=== PATIENT | female | born 1960 | race Caucasian/White ===

== ENCOUNTER 2018-03-31 00:25 | Emergency (ER) | payer MEDICAID ==
[~2018-03-31] VITALS: Ht 175.3 cm; Wt 110.2 kg
[2018-03-31 00:33] VITALS: BP_SYST 157
[2018-03-31] MEDS ORDERED: KETOROLAC TROMETHAMINE 60 MG/2 ML VIAL IM ONE (01:00)
[2018-03-31 01:20] VITALS: BP_SYST 149
== END 2018-03-31 01:20 | disposition home or self-care (01) ==
LOC: SED 00:25
DX: K08.89 Other specified disorders of teeth and supporting structures (principal); L03.116 Cellulitis of left lower limb; L03.115 Cellulitis of right lower limb; F17.210 Nicotine dependence, cigarettes, uncomplicated; I10 Essential (primary) hypertension
CPT/HCPCS: 96372; 99283; J1885

== ENCOUNTER 2020-02-20 16:42 | Emergency (ER) | payer MEDICAID ==
[~2020-02-20] VITALS: Ht 175.3 cm; Wt 97.1 kg
[2020-02-20 16:57] VITALS: BP_SYST 135
[2020-02-20 17:39] VITALS: BP_SYST 135
== END 2020-02-20 17:39 | disposition home or self-care (01) ==
LOC: SED 16:42
DX: R21 Rash and other nonspecific skin eruption (principal); I10 Essential (primary) hypertension; F17.210 Nicotine dependence, cigarettes, uncomplicated
CPT/HCPCS: 87070-TC; 99283

== ENCOUNTER 2020-09-30 05:48 | Inpatient (IN) | payer MEDICAID ==
[~2020-09-30] VITALS: Ht 175.3 cm; Wt 97.1 kg
[2020-09-30 05:50] VITALS: BP_SYST 160
--- NOTE | 2020-09-30 05:55 | NUR ---
Placed in room 06 . Placed on potline monitor, blood pressure machine and pulse oximeter. To gown for exam. Side rails up. Report given to CERAMIC MOLD DESIGNEROUMAR GAVIN.
--- NOTE | 2020-09-30 05:56 | NUR ---
Came in ER this 59 year old female from home, per wheelchair, AAOX4, breathing spontaneously at room air not in distress noted. With chief complaints of Bilateral lower limb swelling, pain and redness noted, with pain score 9/10 as claimed, known with hypertension but not on medication, no surgical and no allergy as claimed. Initial vital signs taken and recorded.
--- NOTE | 2020-09-30 05:58 | NUR ---
# 20 gauge angiocath placed to left antecubital vein. Use of asceptic technique. Opsite placed over site. Blood return noted. Blood for lab drawn from site. Flushed with 10 cc of normal saline. No evidence of infiltration noted. Patient tolerated well.
--- NOTE | 2020-09-30 06:00 | NUR ---
ER MD RAMAN AT BEDSIDE EXAMINING PT
[2020-09-30] MEDS ORDERED: PIPERACILLIN/TAZO 3.375 GM in NS 50 ML IV ONE (06:15)
[2020-09-30] MEDS ORDERED: MORPHINE 4 MG/ML INJ. SYRINGE IVP ONE ×2 (06:15→08:00)
[2020-09-30] MEDS ORDERED: NS 500 ML IV SCH (06:15)
[2020-09-30] MEDS ORDERED: VANCOMYCIN HCL 1 MG in D5W 250 ML IV ONE (06:15)
[2020-09-30] MEDS ORDERED: ONDANSETRON HCL 4 MG/2 ML VIAL IVP ONE (06:15)
[2020-09-30] MEDS ORDERED: PIPERACILLIN/TAZOBACTAM 3.375 GM/VIAL (ZOSYN) IV ONE (06:27)
[2020-09-30] MEDS ORDERED: VANCOMYCIN HCL 1000 MG/VIAL IV ONE (06:27)
--- NOTE | 2020-09-30 06:35 | NUR ---
Medication and Iv fluid commenced as ordered.
[2020-09-30 06:48] LABS: BASOPHILS % (AUTO) 0.3 % (0.0-2.0); EOSINOPHILS # (AUTO) 0.2 K/uL (0.0-0.4); EOSINOPHILS % (AUTO) 1.3 % (0.0-4.0); HEMATOCRIT 40.9 % (36-48); HEMOGLOBIN 13.4 g/dL (12.0-16.0); LYMPHOCYTES % (AUTO) 14.5 % (20.5-51.5); MEAN CORPUSCULAR HEMOGLOBIN 28 pg (27-31); MEAN CORPUSCULAR HGB CONC 33 % (32-36); MEAN CORPUSCULAR VOLUME 87 fL (79.0-98.0); MONOCYTES # (AUTO) 1.6 K/uL (0.0-1.0); MONOCYTES % (AUTO) 11.3 % (1.7-9.3); NEUTROPHILS # (AUTO) 10.1 K/uL (1.8-7.7); NEUTROPHILS % (AUTO) 72.6 % (40.0-70.0); PLATELET COUNT (AUTO) 371 K/uL (130-430); RED BLOOD CELL COUNT(AUTO) 4.71 MIL/uL (4.2-6.2); RED CELL DISTRIBUTION WIDTH 14.4 % (9.0-15.0); WHITE BLOOD COUNT (AUTO) 13.9 K/uL (4.8-10.8)
--- NOTE | 2020-09-30 06:50 | NUR ---
PT DENIES TAKING ANY MEDICATION
[2020-09-30 07:09] LABS: CALCIUM 8.9 mg/dL (8.4-11.0); CREATININE 1.02 mg/dL (0.55-1.30); POTASSIUM 3.9 mmol/L (3.5-5.1)
--- NOTE | 2020-09-30 07:10 | NUR ---
Endorsed to OUMAR Olson in stable condition for continuity of care
[2020-09-30 07:15] LABS: ALBUMIN 3.6 g/dL (3.4-4.8); TOTAL BILIRUBIN 0.6 mg/dL (0.0-1.0)
--- NOTE | 2020-09-30 07:27 | NUR ---
Unable to obtain patient medication list.
--- NOTE | 2020-09-30 07:49 | NUR ---
Patient will be admitted to care of Dr. Mina. Admitted to medsurg unit. Waiting for room assignment. Belongings list completed. Complete and up to date summary report printed. SBAR report to be given at bedside with opportunity for questions.
--- NOTE | 2020-09-30 07:58 | NUR ---
Transfer to [facility]. Licensed nurse present. IV present no signs or symptoms of infiltration.
--- NOTE | 2020-09-30 08:05 | NUR ---
CONSULTATION PAGED REASON FOR CONSULTATION:CELLULITIS PERSON WHO WAS NOTIFIED:JOSE MIGUEL CONSULTING PHYSICIAN:GLENDY KING PATIENT SERVICE REPRESENTATIVE SPECIALTY:INFECTIOUS DISEASE PATIENT SERVICE REPRESENTATIVE PHONE NUMBER:[phone] REQUESTING PHYSICIAN:AKI HUTCHINS
--- NOTE | 2020-09-30 08:06 | NUR ---
ADMISSION NOTE Received patient from ER via gurney. Patient admitted with diagnosis of cellulitis. Patient is awake, alert, oriented X 4. Patient oriented to hospital room, call light, toileting, pain management and safety-teach back done. Patient informed that Miranda will be her nurse and that their room number is 102 A. Personal belongings checked and Belongings List documented. Call light within reach.
[2020-09-30 08:18] VITALS: BP_SYST 159
--- NOTE | 2020-09-30 08:41 | NUR ---
PAGED PAGED AKI HUTCHINS AT [phone] SPOKE WITH AGA.
--- NOTE | 2020-09-30 08:48 | NUR ---
CALLED AND RECEIVED CALL BACK FROM AKI DOE. REPORTED TO DR. LOZADA, THE PATIENT HAS TEMP 101.4 BUT NO TYLENOL ORDER AND THE PATIENT C/O PAIN, NO ORDER YET. ALSO REPORTED TO DR. LOZADA, PATIENT HR 95, WBC 13.9 WHICH FALLS IN SEPSIS PROTOCOL, IVF BOLUS GIVEN IN ER BUT NO CONTINUOUS IVF ORDERED AND BLOOD CULTURE DONE IN ER BUT LACTIC ACID NOT DONE. DR. LOZADA WITH ORDER TYLENOL, NORCO 5/325MG, AND NORCO 10/325, AND D5 1/2NS AT 100ML. ORDER READ BACK AND OKAY TO DR. LOZADA.
[2020-09-30] MEDS ORDERED: ACETAMINOPHEN 325 MG TABLET PO PRN ×3 (09:00→13:45)
[2020-09-30] MEDS ORDERED: HYDROcodone/ACETAMIN 5-325 MG TAB (NORCO/ VICODIN) PO PRN (09:00)
--- NOTE | 2020-09-30 09:02 | NUR ---
HIGH ALERT NOTE: Called Cosmo Hill back at [phone] identified within the medical roster to verify physician authenticity.
--- NOTE | 2020-09-30 09:22 | NUR ---
US DOPPLER STUDY OF BILATERAL LOWER EXTREMITIES DONE AT BEDSIDE.
[2020-09-30] MEDS: D5/0.45 NS 1,000 ML IV SCH ×2 (10:58→19:00)
[2020-09-30 12:25] VITALS: BP_SYST 126
[2020-09-30 13:06] VITALS: BP_SYST 126
--- NOTE | 2020-09-30 13:22 | NUR ---
WEBB KEEP WITH PATIENT Patient has webb $20 x 4, $1 x 3, and coins inside a small wallet. Offered to keep in safety but the patient refused.
[2020-09-30] MEDS ORDERED: LORazepam 2 MG/ML VIAL IVP PRN ×2 (13:45→18:45)
[2020-09-30] MEDS ORDERED: NALOXONE HCL 0.4 MG/ML AMP (NARCAN) IVP PRN ×2 (13:45)
--- NOTE | 2020-09-30 15:48 | NUR ---
BATHROOM Ambulated to bathroom with orthopedic assistant. Void freely with yellow urine, no hematuria/dysuria noted. Patient performed perineal care self. Assisted back to bed. safety measure maintained. Call light within reached. Bed locked in low position, side rails up, bed alarm on. Continue to monitor.
[2020-09-30] MEDS: PIPERACILLIN/TAZO 3.375/DEX-IS 50 ML IV SCH ×2 (15:57→21:35)
[2020-09-30 16:00] VITALS: BP_SYST 135
[2020-09-30] MEDS: HYDROcodone/ACETAMIN 10-325 MG TAB PO PRN ×2 (16:03→21:39)
--- NOTE | 2020-09-30 16:03 | NUR ---
NORCO GIVEN Patient c/o bilateral lower leg pain 7/10, [place] 10/325mg 1 tab PO given as ordered. No acute distress. Safety measure maintained. Call light within reached. Continue to monitor.
[2020-09-30] MEDS ORDERED: FLU VACC QS2020-21 (6 mos & up) 0.5 ML/SYRINGE I.M. PRN (16:30)
--- NOTE | 2020-09-30 18:20 | NUR ---
SEEN AND EXAMINED BY AKI DOE.
[2020-09-30] MEDS ORDERED: ONDANSETRON HCL 4 MG/2 ML VIAL IVP PRN (18:45)
--- NOTE | 2020-09-30 18:55 | NUR ---
CLOSING NOTE Patient resting in the bed. No acute distress. Skin warm and dry to touch. Temp 98.8 at this time. IV intact to LAC, no redness, no swelling, no drainage. On D5 1/2NS at 100ml/hr, infusing well. All needs met. Safety measure maintained. Call light within reached. Bed locked in low position, side rails up, bed alarm on. Will endorse to night nurse.
[2020-09-30 19:00] VITALS: BP_SYST 111
--- NOTE | 2020-09-30 19:15 | NUR ---
pt.assessed.pt.presents quiescent affect;calm,resting.pt.presents cellulitis;location:lowed extremities bilateral.pt.presents psorias location;profound distribution.pt.presents iv access location:lt.antecubital iv intact;patent iv fluids infusing.pt.capable to reposition self/ambulate.general status stable.respiratory status stable;unlabored@room air.call light/telephone w/in access of the pt.
--- NOTE | 2020-09-30 20:00 | NUR ---
pt.assessed.v/s assessed values w/in normal limits.no c/o pain,nausea.iv access intact;patent iv fluids infusing.i have apprised the pt.that snacks/beverages are available w/in the shift.pt.requested snacks.i have provided pudding/jello.pt.capable to reposition self/ambulate.call light/telelphone w/in access of the pt.
--- NOTE | 2020-09-30 21:00 | NUR ---
i have administered zosyn abx ivpb 2100pdose.pt.requested snacks.i have provided the snacks.
--- NOTE | 2020-09-30 21:30 | NUR ---
pt.had requested medication;pain.i have administered norco;10/325mg.to assessed the efficacy of the pain medication per pain mgx protocol.pt.had ambulated to the restroom.gait assessed upon return to bed wnl.
--- NOTE | 2020-09-30 22:00 | NUR ---
pt.assessed.pt.presents quiescent affect;clam,resting.iv access intact;patent iv fluids infusing.pt.requested additional snacks. i have provided the snacks;pudding/jello,sandwich.general status stable.respiratory status stable;unlabored.call light/telephone w/in access of the pt.
--- NOTE | 2020-10-01 | NUR ---
pt.assessed.v/s assessed values w/in normal limits.no c/o pain,nausea.iv access intact;patent iv fluids infusing.no requests posited @this hour. general status stable.respiratory status stable;unlabored.pt capable to reposition self/ambulate call light/telephone w/in access of the pt.
[2020-10-01 00:13] VITALS: BP_SYST 127
--- NOTE | 2020-10-01 02:00 | NUR ---
pt.assessed.pt.presents quiecent affect;calm,somnolent.per flacc pain mgx pt.absent facial grimaces/body posturing.general status sable.respiratory status stable; un ablore.d.pt vcapbvl;r tyo rsopt tio0en self.chevy cces sof thept/
[2020-10-01] MEDS: PIPERACILLIN/TAZO 3.375/DEX-IS 50 ML IV SCH (03:35)
--- NOTE | 2020-10-01 04:00 | NUR ---
pt.assessed.i have re-established the iv access#24g location:lt.forearm.i have re- connected the iv fluids.pt.had ambulated to the restroom.gait assessed wnl.pt.requested snacks/tea.i have provided the snacks/tea.no c/o pain.nausea.general status stable.respiratory status stable;unlabored.call light/telephone placed w/in access of the pt.
--- NOTE | 2020-10-01 05:39 | NUR ---
PT.ASSESSED.PT.PRESENTS QUIESCENT AFFECT;CALM,SOMNOLENT.PER FLACC PAIN MGX PT.ABSENT FACIAL GRIMACES/BODY POSTURING.PT.CAPABLE TO REPOSITION SELF.GENERAL STATUS STABLE.RESPIRATORY STATUS STABLE;UNLABORED.CALL LIGHT /TELEPHONE W/IN ACCESS OF THE PT.
[2020-10-01 06:26] LABS: BASOPHILS % (AUTO) 0.3 % (0.0-2.0); EOSINOPHILS # (AUTO) 0.2 K/uL (0.0-0.4); EOSINOPHILS % (AUTO) 3.5 % (0.0-4.0); HEMATOCRIT 37.4 % (36-48); HEMOGLOBIN 12.3 g/dL (12.0-16.0); LYMPHOCYTES # (AUTO) 1.3 K/uL (1.0-5.5); LYMPHOCYTES % (AUTO) 19.6 % (20.5-51.5); MEAN CORPUSCULAR HEMOGLOBIN 29 pg (27-31); MEAN CORPUSCULAR HGB CONC 33 % (32-36); MEAN CORPUSCULAR VOLUME 88 fL (79.0-98.0); MONOCYTES # (AUTO) 0.9 K/uL (0.0-1.0); MONOCYTES % (AUTO) 12.6 % (1.7-9.3); NEUTROPHILS # (AUTO) 4.4 K/uL (1.8-7.7); PLATELET COUNT (AUTO) 277 K/uL (130-430); RED BLOOD CELL COUNT(AUTO) 4.25 MIL/uL (4.2-6.2); RED CELL DISTRIBUTION WIDTH 14.2 % (9.0-15.0); WHITE BLOOD COUNT (AUTO) 6.8 K/uL (4.8-10.8)
--- NOTE | 2020-10-01 07:25 | NUR ---
Nutrition Update Shawn Scale 17 noted. Pt admitted for Cellulitis Diet: Cardiac BMI: 31.6 kg/m2 RD to follow per nutrition care standards.
[2020-10-01 07:40] LABS: ALBUMIN 2.7 g/dL (3.4-4.8); CALCIUM 8.5 mg/dL (8.4-11.0); CREATININE 0.82 mg/dL (0.55-1.30); PHOSPHORUS 2.8 mg/dL (2.7-4.5); TOTAL BILIRUBIN 0.6 mg/dL (0.0-1.0)
--- NOTE | 2020-10-01 07:40 | NUR ---
Initial Rounds Patient awake in bed, A & ox4, on room air without signs of distress, denies pain, Iv on Left FA patent, without signs of infiltration and IV fluids running as ordered, bed in lowest position, brakes locked, bed alarm on, call light within reach, on fall and safety precautions.
[2020-10-01 08:08] VITALS: BP_SYST 111
[2020-10-01 08:14] LABS: ERYTHROCYTE SEDIMENTATION RATE 18 MM/HR (0-20)
[2020-10-01 08:51] LABS: C-REACTIVE PROTEIN QUANT 5.9 mg/dL (0-0.5)
[2020-10-01] MEDS: HYDROcodone/ACETAMIN 10-325 MG TAB PO PRN ×2 (09:16→16:22)
[2020-10-01] MEDS: D5/0.45 NS 1,000 ML IV SCH ×2 (09:20→15:00)
--- NOTE | 2020-10-01 09:30 | NUR ---
RN Rounds Patient on room air, without signs of distress, assisted to bathroom.
[2020-10-01 11:29] VITALS: BP_SYST 101
--- NOTE | 2020-10-01 11:30 | NUR ---
RN Rounds Patient requested room transfer, unable to rest due to other patients noise. Spoke to Eda lopez RN and made her aware.
[2020-10-01] MEDS: ceFAZolin SODIUM 1 GM in D5W 50 ML IV SCH ×2 (13:21→21:10)
[2020-10-01 15:25] VITALS: BP_SYST 135
--- NOTE | 2020-10-01 16:15 | NUR ---
Patient refused to transfer rooms Spoke to patient as well as Eda the charge entry specialist, patient decided she did not want to transfer rooms.
--- NOTE | 2020-10-01 18:40 | NUR ---
Closing notes Patient awake in bed, A & ox4, on room air without signs of distress, denies pain, Iv on Left AC 20 gauge patent and without signs of infiltration, saline lock, bed in lowest position, brakes locked, bed alarm on, call light within reach, on fall and safety precautions denies pain, all needs met, will endorse care to nightshift RN.
--- NOTE | 2020-10-01 19:30 | NUR ---
OPENING NOTES RECEIVED REPORT FROM DAY SHIFT RN. PT RESTING IN BED, BREATHING EVEN AND UNLABORED TO ROOM AIR. NO SIGNS OF RESPIRATORY DISTRESS NOTED. NO S/S OF ACUTE DISTRESS NOTED. IV ON LEFT AC 20G INTACT, NO SIGNS OF INFILTRATION NOTED. CALL LIGHT WITHIN REACH. BED LOCKED IN LOWEST LEVEL. SAFETY PRECAUTIONS ARE IN PLACE. WILL MONITOR.
[2020-10-01 20:00] VITALS: BP_SYST 114
[2020-10-01] MEDS: NORMAL SALINE 5 ML DISP.SYRIN IVF SCH (21:10)
[2020-10-02] VITALS: BP_SYST 116
[2020-10-02] MEDS: HYDROcodone/ACETAMIN 10-325 MG TAB PO PRN (03:43)
[2020-10-02] MEDS: ceFAZolin SODIUM 1 GM in D5W 50 ML IV SCH ×2 (05:40→14:09)
[2020-10-02] MEDS: NORMAL SALINE 5 ML DISP.SYRIN IVF SCH ×2 (05:40→14:09)
[2020-10-02 07:20] LABS: BASOPHILS % (AUTO) 0.5 % (0.0-2.0); EOSINOPHILS # (AUTO) 0.2 K/uL (0.0-0.4); EOSINOPHILS % (AUTO) 3.6 % (0.0-4.0); HEMATOCRIT 38.6 % (36-48); HEMOGLOBIN 12.5 g/dL (12.0-16.0); LYMPHOCYTES % (AUTO) 32.2 % (20.5-51.5); MEAN CORPUSCULAR HEMOGLOBIN 29 pg (27-31); MEAN CORPUSCULAR HGB CONC 32 % (32-36); MEAN CORPUSCULAR VOLUME 89 fL (79.0-98.0); MONOCYTES # (AUTO) 0.8 K/uL (0.0-1.0); MONOCYTES % (AUTO) 13.8 % (1.7-9.3); NEUTROPHILS # (AUTO) 3.1 K/uL (1.8-7.7); NEUTROPHILS % (AUTO) 49.9 % (40.0-70.0); PLATELET COUNT (AUTO) 320 K/uL (130-430); RED BLOOD CELL COUNT(AUTO) 4.36 MIL/uL (4.2-6.2); RED CELL DISTRIBUTION WIDTH 14.4 % (9.0-15.0); WHITE BLOOD COUNT (AUTO) 6.2 K/uL (4.8-10.8)
[2020-10-02 07:24] LABS: CALCIUM 8.8 mg/dL (8.4-11.0); CREATININE 0.85 mg/dL (0.55-1.30); POTASSIUM 4.8 mmol/L (3.5-5.1)
[2020-10-02 08:00] VITALS: BP_SYST 115
[2020-10-02 08:29] LABS: C-REACTIVE PROTEIN QUANT 2.8 mg/dL (0-0.5)
--- NOTE | 2020-10-02 08:45 | NUR ---
Opening Notes Patient is awake, alert and oriented x4. No resp distress. Breathing is even and unlabored. Pt remains on room air at this time. Denies any SOB or cough. Pt is c/o 02/19 general body pain, requesting pain medication. Per patient, "the current pain meds I have dont work. My legs are constantly in pain." Will follow up with MD Mina. IV site on left AC, 20 gauge intact at this time, saline lock. Flushing well at this time. Pt is also requesting for snacks. All needs met at this time. Safety and fall precautions in place at this time. Bed in lowest position, locked. Will continue to monitor.
[2020-10-02 10:27] LABS: ERYTHROCYTE SEDIMENTATION RATE 23 MM/HR (0-20)
[2020-10-02] MEDS ORDERED: MORPHINE 2 MG/ML INJ. SYRINGE IVP PRN (10:45)
[2020-10-02] MEDS ORDERED: NALOXONE HCL 0.4 MG/ML AMP (NARCAN) IVP PRN (10:45)
--- NOTE | 2020-10-02 10:45 | NUR ---
HIGH ALERT NOTE: Morphine [address] Mina back at [phone] identified within the medical roster to verify physician authenticity. Obtained new orders for Morphine 2 mg IVP Q6H x breakthrough pain 7-10. Noted and carried out. Will continue to monitor.
[2020-10-02 11:31] VITALS: BP_SYST 110
--- NOTE | 2020-10-02 12:24 | NUR ---
Dietitian Recommendations *Recommend: continue 2gm Na diet per MD. *Recommend: provide double servings of meat and vegetables. Please see Nutritional Assessment for details. RAUL NGUYEN
[2020-10-02 15:30] VITALS: BP_SYST 116
[2020-10-02 16:09] VITALS: BP_SYST 116
[2020-10-02] MEDS ORDERED: AMOX-423 PO (18:17)
[2020-10-02] MEDS ORDERED: SACC250C3 PO (18:17)
[2020-10-02] MEDS ORDERED: HYDR-3927 PO (18:17)
--- NOTE | 2020-10-02 18:57 | NUR ---
Closing Notes/Preparing for DC Patient is awake, alert and oriented x4, preparing for discharge. IV site out at this time. No resp distress noted. Breathing is even and unlabored. Pt is ambulatory, steady gait. Pt denies any pain at this time. Pt waiting for family member to pick her up. Will endorse to next nurse to help patient with discharge exit. *Cigarettes and lighters were given back to the patient*
--- NOTE | 2020-10-02 19:21 | NUR ---
D/C Patient Patient given medication reconciliation form and D/C instructions. Exit Care provided. Patient verbalized understanding. MD discussed with patient the results and treatment provided. Ambulatory with steady gait for discharge to home. Patient in stable condition, ID band removed. IV catheter removed, intact and dressing applied, no active bleeding. Rx of given. Patient educated on pain management. All belongings sent with patient.
== END 2020-10-02 19:21 | disposition home or self-care (01) | DRG 720 ==
LOC: SED 05:48 → SMU 07:48
PROVIDERS: ADMIT Preventive Medicine Preventive Medicine/Occupational Environmental Medicine; ATTEND Preventive Medicine Preventive Medicine/Occupational Environmental Medicine
DX: A41.9 Sepsis, unspecified organism (principal); L03.116 Cellulitis of left lower limb; L03.115 Cellulitis of right lower limb; R73.9 Hyperglycemia, unspecified; I10 Essential (primary) hypertension; L40.9 Psoriasis, unspecified; M19.90 Unspecified osteoarthritis, unspecified site; F31.9 Bipolar disorder, unspecified; E66.9 Obesity, unspecified; I87.2 Venous insufficiency (chronic) (peripheral); Z20.822 Contact with and (suspected) exposure to COVID-19; I87.8 Other specified disorders of veins; K74.60 Unspecified cirrhosis of liver; Z68.31 Body mass index [BMI] 31.0-31.9, adult; Z72.0 Tobacco use
CPT/HCPCS: 36415; 80048; 80053; 83605; 83735-TC; 84100-TC; 85025; 85651-TC; 86140; 87040-TC; 93970; 96365; 96375; 96376; J0690; J2270; J2405; J2543; J3370; J7050; J7060

== ENCOUNTER 2021-08-13 07:24 | Emergency (ER) | payer MEDICAID ==
[~2021-08-13] VITALS: Ht 175.3 cm; Wt 95.7 kg
[~2021-08-13 07:24] MED LIST: AMOX-423 PO; HYDR-3927 PO; SACC250C3 PO
[2021-08-13 07:35] VITALS: BP_SYST 188
--- NOTE | 2021-08-13 07:43 | NUR ---
ER to triage to exam patient.
--- NOTE | 2021-08-13 07:50 | NUR ---
Patient to ER bed 5 to gown for evaluation. Side rails up. Report given to Yvonne.
--- NOTE | 2021-08-13 08:00 | NUR ---
INITIAL CONTACT WITH PT'. FL A/OX4 AMBULATORY, C/O ABD PAIN. ED DR SEEN PTS GAVE ORDERS, URINE SENT TO LAB.
--- NOTE | 2021-08-13 08:06 | NUR ---
Patient transported to radiology via wheelchair, accompanied by staff.
[2021-08-13 08:31] LABS: BASOPHILS # (AUTO) 0.2 K/uL (0.0-0.2); BASOPHILS % (AUTO) 2.7 % (0.0-2.0); EOSINOPHILS % (AUTO) 0.3 % (0.0-4.0); HEMATOCRIT 30.2 % (36-48); HEMOGLOBIN 9.7 g/dL (12.0-16.0); LYMPHOCYTES # (AUTO) 1.2 K/uL (1.0-5.5); LYMPHOCYTES % (AUTO) 13.6 % (20.5-51.5); MEAN CORPUSCULAR HEMOGLOBIN 27 pg (27-31); MEAN CORPUSCULAR HGB CONC 32 % (32-36); MEAN CORPUSCULAR VOLUME 85 fL (79.0-98.0); MONOCYTES # (AUTO) 0.7 K/uL (0.0-1.0); MONOCYTES % (AUTO) 7.4 % (1.7-9.3); NEUTROPHILS # (AUTO) 6.8 K/uL (1.8-7.7); PLATELET COUNT (AUTO) 612 K/uL (130-430); RED BLOOD CELL COUNT(AUTO) 3.55 MIL/uL (4.2-6.2); RED CELL DISTRIBUTION WIDTH 15.4 % (9.0-15.0)
[2021-08-13 08:40] LABS: BILIRUBIN,URINE NEGATIVE (NEGATIVE); BLOOD, URINE NEGATIVE (NEGATIVE); COLOR,URINE YELLOW (YELLOW); GLUCOSE,URINE NEGATIVE (NEGATIVE); KETONES,URINE TRACE (NEGATIVE); LEUKOCYTE ESTERASE ,URINE NEGATIVE (NEGATIVE); NITRITE, URINE NEGATIVE (NEGATIVE); PROTEIN URINE NEGATIVE (NEGATIVE)
[2021-08-13 08:44] LABS: CLARITY/URINE SLIGHTLY HAZY (CLEAR)
--- NOTE | 2021-08-13 08:57 | NUR ---
PT COMPLAINING OF PAIN dR AVITIA MADE AWARE, ORDER FOR GI COCKTAIL RECEIVED
[2021-08-13] MEDS ORDERED: MAG HYDROX/AL HYDROX/SIMETH 30 ML, DICYCLOMINE HCL 20 MG, LIDOCAINE VISCOUS 2% 15ML (PO... PO ONE ×3 (09:00)
[2021-08-13 09:28] LABS: ANION GAP 11 (5-15); CALCIUM 9.4 mg/dL (8.4-11.0); CHLORIDE 104 mmol/L (98-107); CREATININE 0.67 mg/dL (0.55-1.30); GLUCOSE 113 mg/dL (70-99); POTASSIUM 3.6 mmol/L (3.5-5.1); SODIUM SERUM 140 mmol/L (136-145); UREA NITROGEN, BLOOD 12 mg/dL (8-21)
[2021-08-13 09:35] LABS: ALANINE AMINOTRANSFERASE 26 U/L (12-78); ALBUMIN 3.4 g/dL (3.4-4.8); AMYLASE 60 U/L (0-100); ASPARTATE AMINOTRANSFERASE 16 U/L (10-37); GFR AFRICAN AMERICAN 115 mL/min (>90); LACTATE DEHYDROGENASE 161 U/L (81-234); LIPASE 33 U/L (73-393); TOTAL BILIRUBIN 0.3 mg/dL (0.0-1.0)
[2021-08-13] MEDS ORDERED: HYDR-3917 PO (10:12)
[2021-08-13] MEDS ORDERED: OMEP20CA15 PO (10:12)
--- NOTE | 2021-08-13 10:15 | NUR ---
DR AVITIA RE ASSESSED PT AND CLEARED TO BE DC HOME. PT DC IN STABLE CONDITION, A/OX4 AMBULATORY, ACI AND TX PROVIDED AND EXPLAINED. PT VERBALIZED DESIRE TO SEE HER PRIMARY MD
[2021-08-13] MEDS ORDERED: DOCU-144 PO (10:21)
[2021-08-13 10:55] VITALS: BP_SYST 145
[2021-08-13 11:13] LABS: C-REACTIVE PROTEIN QUANT < 0.2 mg/dL (0-0.5)
== END 2021-08-13 10:52 | disposition home or self-care (01) ==
LOC: SED 07:24
DX: K29.00 Acute gastritis without bleeding (principal); I10 Essential (primary) hypertension; Z79.899 Other long term (current) drug therapy
CPT/HCPCS: 36415; 74176; 76376; 80053; 81003; 82150; 83605; 83615; 83690; 84484; 84703; 85025; 86140; 99284; J2001